=== PATIENT | female | born 1975 | race Caucasian/White ===

== ENCOUNTER → 2016-12-28 | Outpatient (CLI) | payer BC ==
[~2016-12-28] MED LIST: LO LOESTRIN FE1 EACH PO; NEURONTIN300 MG PO; NUCYNTA50 MG PO; PRILOSEC OTC20 MG PO
== END | disposition home or self-care (01) ==
LOC: CDC 10:18
DX: Z01.810 Encounter for preprocedural cardiovascular examination (principal); M54.16 Radiculopathy, lumbar region
CPT/HCPCS: 93000

== ENCOUNTER 2017-01-01 22:08 | Inpatient (IN) | payer BC ==
[~2017-01-01] VITALS: Ht 170.2 cm; Wt 96.0 kg
[2017-01-02 05:52] VITALS: BP 123/77
[2017-01-02 14:15] VITALS: BP 130/78
[2017-01-02 16:19] VITALS: BP 108/62
[2017-01-02 19:37] VITALS: BP 115/58
[2017-01-02 23:32] VITALS: BP 117/57
[2017-01-03 04:40] VITALS: BP 117/61
[2017-01-03 07:37] VITALS: BP 109/59
[2017-01-03] MEDS ORDERED: NUCYNTA50 MG PO (08:44)
[2017-01-03] MEDS ORDERED: DIAZEPAM5 MG PO (08:44)
[2017-01-03 11:27] VITALS: BP 124/65
[2017-01-03 16:01] VITALS: BP 124/67
[2017-01-03 23:36] VITALS: BP 110/61
[2017-01-04 07:53] VITALS: BP 117/71
== END 2017-01-04 14:24 | disposition home or self-care (01) | DRG 455 ==
LOC: ENRESERV 22:08 → 2SOUTH 01-02 05:28 → ENRESERV 01-02 13:03 → 3EAST 01-02 13:18 → SDC 01-02 13:46 → EDSTATUS 01-02 13:46 → 2WEST 01-02 13:47 → 3EAST 01-04 14:24
DX: M51.27 Other intervertebral disc displacement, lumbosacral region (principal); M54.16 Radiculopathy, lumbar region; M62.830 Muscle spasm of back; K21.9 Gastro-esophageal reflux disease without esophagitis
CPT/HCPCS: 72100; 76000; J0131; J0690; J1100; J1170; J1580; J1885; J2250; J2405; J2704; J3010; J3370; J3480; Q0175